=== PATIENT | female | born 1995 | race Caucasian/White ===

== ENCOUNTER 2023-07-18 06:51 | Day surgery (SDC) | payer OTHER ==
[2023-07-17 09:49] VITALS: BMI 20.7
[2023-07-18] MEDS ORDERED: PROPOFOL 40 ML ONE (08:41)
[2023-07-18] MEDS ORDERED: PROPOFOL 20 ML ONE (09:15)
== END 2023-07-18 09:56 | disposition home or self-care (01) ==
LOC: CSHSDC 06:51
PROVIDERS: ATTEND Internal Medicine Gastroenterology
PROC: 0DB98ZX Excision of Duodenum, Via Natural or Artificial Opening Endoscopic, Diagnostic (ICD-10-PCS; principal; 2023-07-18)
PROC: 0DB68ZX Excision of Stomach, Via Natural or Artificial Opening Endoscopic, Diagnostic (ICD-10-PCS; principal; 2023-07-18)
DX: R10.13 Epigastric pain (principal); K44.9 Diaphragmatic hernia without obstruction or gangrene
CPT/HCPCS: 88305; J2704